=== PATIENT | female | born 1935 | race Caucasian/White ===

== ENCOUNTER 2018-01-06 19:28 | Inpatient (IN) | payer MEDICARE, OTHER ==
[~2018-01-06] VITALS: Ht 166.4 cm; Wt 60.3 kg
[2018-01-06 22:55] VITALS: BP 133/73
[2018-01-07] VITALS: BP 120/69
[2018-01-07] MEDS ORDERED: FUROSEMIDE20 M1 ORAL (00:21)
[2018-01-07] MEDS ORDERED: TRIAMCINOLONE AC5 GM DT (00:21)
[2018-01-07] MEDS ORDERED: VALACYCLOVIR500 MG ORAL (00:21)
[2018-01-07] MEDS ORDERED: SYNTHROID100 MCG ORAL (00:21)
[2018-01-07] MEDS ORDERED: OMEPRAZOLE20 M2 ORAL (00:21)
[2018-01-07] MEDS ORDERED: NORCO 5-325 TA1 EACH ORAL (00:21)
[2018-01-07] MEDS ORDERED: Zolpidem 5mg tab ORAL PRN (01:15)
[2018-01-07] MEDS ORDERED: Metoprolol 5mg/5ml Inj IVP PRN (01:15)
[2018-01-07] MEDS ORDERED: Norco 5mg/325mg tab ORAL PRN (01:30)
[2018-01-07] MEDS ORDERED: Xarelto 10mg tab ORAL SCH (02:00)
[2018-01-07] MEDS: Xarelto 15mg tab ORAL SCH ×2 (02:20→16:26)
[2018-01-07 04:00] VITALS: BP 120/65
[2018-01-07 07:52] VITALS: BP 121/73
[2018-01-07] MEDS: valACYclovir HCL 500mg tab ORAL SCH (08:20)
[2018-01-07] MEDS: Metoprolol Tartrate 50mg tab ORAL SCH ×2 (08:21→20:24)
[2018-01-07 08:22] LABS: BASOPHILS % (AUTO) 0.9 % (0.0-2.0); EOSINOPHILS % (AUTO) 0.3 % (0.0-3.0); HEMATOCRIT 42.9 % (37.0-47.0); HEMOGLOBIN 14.6 G/DL (12.0-16.0); LYMPHOCYTES % (AUTO) 21.8 % (20.0-45.0); MEAN CORPUSCULAR VOLUME 93 FL (80-99); MONOCYTES % (AUTO) 12.2 % (1.0-10.0); NEUTROPHILS % (AUTO) 64.9 % (45.0-75.0); PLATELET COUNT 236 K/UL (150-450); RED BLOOD COUNT 4.62 M/UL (4.20-5.40)
[2018-01-07 08:58] LABS: ALANINE AMINOTRANSFERASE 24 U/L (12-78); ALBUMIN 3.2 G/DL (3.4-5.0); ALKALINE PHOSPHATASE 63 U/L (46-116); ANION GAP 9 mmol/L (5-15); ASPARTATE AMINO TRANSFERASE 22 U/L (15-37); BILIRUBIN,TOTAL 0.6 MG/DL (0.2-1.0); BLOOD UREA NITROGEN 25 mg/dL (7-18); CALCIUM 8.4 MG/DL (8.5-10.1); CARBON DIOXIDE 26 MMOL/L (21-32); CHLORIDE 105 MMOL/L (98-107); CHOLESTEROL 187 MG/DL (< 200); HDL CHOLESTEROL 82 MG/DL (40-60); PHOSPHORUS 2.9 MG/DL (2.5-4.9); POTASSIUM 4.1 MMOL/L (3.5-5.1); SODIUM 140 MMOL/L (136-145); TRIGLYCERIDES 42 MG/DL (30-150)
[2018-01-07] MEDS ORDERED: Metoprolol Succinate XL 50mg tab ORAL SCH (09:00)
--- NOTE | 2018-01-07 11:50 | Consultation ---
History of Present Illness General Date patient seen: Jan 07, 2018 Present Illness HPI 82 year old female without PMHx was taken to [facility] by paramedics with CC of near-syncope. She was rapid afib. She got lightheaded but didn't loose consciousness. She received IV Cardizem and Metoprolol and heart rate came down. She is transferred to [facility] telemetry for further work up. Allergies: Coded Allergies: SULFA (SULFONAMIDE ANTIBIOTICS) (Verified Allergy, Unknown, 01/07/18) Medication History Scheduled Furosemide* (Lasix*), 20 MG ORAL DAILY, (Reported) Levothyroxine Sodium* (Synthroid*), 100 MCG ORAL DAILY, (Reported) Omeprazole (Omeprazole), 20 MG ORAL DAILY, (Reported) Valacyclovir Hcl* (Valtrex*), 500 MG ORAL EVERY OTHER DAY, (Reported) Scheduled PRN Hydrocodone Bit/Acetaminophen 5-325* (Lumpkin 5-325*), 1 TAB ORAL Q6H PRN for For Pain, (Reported) Miscellaneous Medications Triamcinolone Acetonide (Triamcinolone Acetonide), 5 GM DT, (Reported) Patient History Healthcare decision maker NEERU PUENTE Resuscitation status Full Code Advanced Directive on File No Past Medical/Surgical History Past Medical/Surgical History: (1) Hypothyroidism Review of Systems Constitutional: Reports: no symptoms, weakness Eye: Reports: no symptoms All Other Systems: negative except mentioned in HPI Physical Exam General Appearance: WD/WN, no apparent distress Lines, tubes and drains: peripheral HEENT: normocephalic, atraumatic Neck: non-tender Respiratory/Chest: chest wall non-tender Breasts: no masses Cardiovascular/Chest: irregularly irregular Abdomen: normal bowel sounds, non tender Genitourinary/Rectal: normal genital exam Extremities: normal range of motion Skin Exam: normal pigmentation Last 24 Hour Vital Signs Date Time Temp Pulse Resp B/P (MAP) Pulse Ox O2 Delivery O2 Flow Rate FiO2 01/07/18 09:00 Room Air 01/07/18 08:21 96 121/73 01/07/18 08:00 91 01/07/18 07:52 97.7 96 20 121/73 (89) 97 01/07/18 04:00 97.0 96 20 120/65 (83) 97 01/07/18 04:00 96 01/07/18 00:00 90 01/07/18 00:00 97.0 90 20 120/69 (86) 96 01/06/18 23:42 Room Air 01/06/18 23:30 90 01/06/18 22:55 97.2 92 20 133/73 (93) 95 Intake and Output 01/06/18 01/07/18 19:00 07:00 Output Total 0 ml Balance 0 ml Output Urine Total 0 ml Laboratory Tests Test 01/07/18 07:30 White Blood Count 7.0 K/UL (4.8-10.8) Red Blood Count 4.62 M/UL (4.20-5.40) Hemoglobin 14.6 G/DL (12.0-16.0) Hematocrit 42.9 % (37.0-47.0) Mean Corpuscular Volume 93 FL (80-99) Mean Corpuscular Hemoglobin 31.6 PG (27.0-31.0) H Mean Corpuscular Hemoglobin Concent 34.1 G/DL (32.0-36.0) Red Cell Distribution Width 12.0 % (11.6-14.8) Platelet Count 236 K/UL (150-450) Mean Platelet Volume 7.1 FL (6.5-10.1) Neutrophils (%) (Auto) 64.9 % (45.0-75.0) Lymphocytes (%) (Auto) 21.8 % (20.0-45.0) Monocytes (%) (Auto) 12.2 % (1.0-10.0) H Eosinophils (%) (Auto) 0.3 % (0.0-3.0) Basophils (%) (Auto) 0.9 % (0.0-2.0) Sodium Level 140 MMOL/L (136-145) Potassium Level 4.1 MMOL/L (3.5-5.1) Chloride Level 105 MMOL/L (98-107) Carbon Dioxide Level 26 MMOL/L (21-32) Anion Gap 9 mmol/L (5-15) Blood Urea Nitrogen 25 mg/dL (7-18) H Creatinine 1.0 MG/DL (0.55-1.30) Estimat Glomerular Filtration Rate mL/min (>60) Glucose Level 99 MG/DL (74-106) Calcium Level 8.4 MG/DL (8.5-10.1) L Phosphorus Level 2.9 MG/DL (2.5-4.9) Magnesium Level 1.8 MG/DL (1.8-2.4) Total Bilirubin 0.6 MG/DL (0.2-1.0) Aspartate Amino Transf (AST/SGOT) 22 U/L (15-37) Alanine Aminotransferase (ALT/SGPT) 24 U/L (12-78) Alkaline Phosphatase 63 U/L (46-116) Total Protein 6.3 G/DL (6.4-8.2) L Albumin 3.2 G/DL (3.4-5.0) L Globulin 3.1 g/dL Albumin/Globulin Ratio 1.0 (1.0-2.7) Triglycerides Level 42 MG/DL (30-150) Cholesterol Level 187 MG/DL (< 200) LDL Cholesterol 93 mg/dL (<100) HDL Cholesterol 82 MG/DL (40-60) H Cholesterol/HDL Ratio 2.3 (3.3-4.4) L Thyroid Stimulating Hormone (TSH) 0.044 uiU/mL (0.358-3.740) Height (Feet): 5 Height (Inches): 5.50 Weight (Pounds): 133 Medications Current Medications Medications (Trade) Dose Ordered Sig/Nazario Route PRN Reason Start Time Stop Time Status Last Admin Dose Admin Acetaminophen (Tylenol) 650 mg Q6H PRN ORAL Mild Pain/Temp > 100.5 01/07/18 01:15 02/06/18 01:14 Acetaminophen/ Hydrocodone Bitart (Lumpkin 5/325) 1 tab Q6H PRN ORAL For Pain 01/07/18 01:30 01/14/18 01:29 Furosemide (Lasix) 20 mg DAILY ORAL 01/07/18 09:00 02/06/18 08:59 01/07/18 08:21 Levothyroxine Sodium (Synthroid) 100 mcg DAILY@0630 ORAL 01/07/18 06:30 02/06/18 06:29 01/07/18 06:16 Metoprolol Tartrate (Lopressor) 5 mg Q4H PRN IVP Per rx protocol 01/07/18 01:15 02/06/18 01:14 Metoprolol Tartrate (Lopressor) 50 mg Q12HR ORAL 01/07/18 09:00 02/06/18 08:59 01/07/18 08:21 Ondansetron HCl (Zofran) 4 mg Q4H PRN IVP Nausea & Vomiting 01/07/18 01:15 02/06/18 01:14 Pantoprazole (Protonix) 40 mg DAILY ORAL 01/07/18 09:00 02/06/18 08:59 01/07/18 08:21 Potassium Chloride (K-Dur) 20 meq DAILY ORAL 01/07/18 09:00 02/06/18 08:59 01/07/18 08:20 Rivaroxaban (Xarelto) 15 mg DAILY@1630 ORAL 01/07/18 02:00 02/06/18 01:59 01/07/18 02:20 Valacyclovir HCl (Valtrex) 500 mg EVERY OTHER DAY ORAL 01/07/18 09:00 02/06/18 08:59 01/07/18 08:20 Zolpidem Tartrate (Ambien) 5 mg HSPRN PRN ORAL Insomnia 01/07/18 01:15 01/14/18 01:14 Assessment/Plan Problem List: (1) New onset a-fib ICD Codes: I48.91 - Unspecified atrial fibrillation SNOMED: 24264686 (2) Near syncope ICD Codes: R55 - Syncope and collapse SNOMED: 124720804 (3) Hypothyroidism ICD Codes: E03.9 - Hypothyroidism, unspecified SNOMED: 49953933 Assessment/Plan rate control, prn Cardizem and metoprolol check echo check BNP check cxr f/u bun/creatinine cardiology evaluation Gonzales Bright MD Jan 07, 2018 11:50
[2018-01-07 12:00] VITALS: BP 113/59
--- NOTE | 2018-01-07 12:01 | Consultation ---
History of Present Illness Present Illness HPI 82-year-old lady with history of hypertension, hypothyroidism, depression and hip replacement. the pt pw depressed mood, anxiety, fatigue. the pts daughter past away 2 yrs ago in January. the pt denies si/hi. the pt wants to be discharged home Allergies: Coded Allergies: SULFA (SULFONAMIDE ANTIBIOTICS) (Verified Allergy, Unknown, 01/07/18) Medication History Scheduled Furosemide* (Lasix*), 20 MG ORAL DAILY, (Reported) Levothyroxine Sodium* (Synthroid*), 100 MCG ORAL DAILY, (Reported) Omeprazole (Omeprazole), 20 MG ORAL DAILY, (Reported) Valacyclovir Hcl* (Valtrex*), 500 MG ORAL EVERY OTHER DAY, (Reported) Scheduled PRN Hydrocodone Bit/Acetaminophen 5-325* (Glenc[place] 5-325*), 1 TAB ORAL Q6H PRN for For Pain, (Reported) Miscellaneous Medications Triamcinolone Acetonide (Triamcinolone Acetonide), 5 GM DT, (Reported) Patient History History Provided By: Patient, Medical Record, PMD Healthcare decision maker NEERU PUENTE Resuscitation status Full Code Advanced Directive on File No Past Medical/Surgical History Past Medical/Surgical History: (1) No significant past medical history (2) New onset a-fib (3) Near syncope (4) Hypothyroidism Review of Systems Psychiatric: Reports: prior hx, anxiety, depressed feelings, emotional problems Physical Exam General Appearance: no apparent distress, alert Neurologic: oriented x 3, responsive, depressed affect Last 24 Hour Vital Signs Date Time Temp Pulse Resp B/P (MAP) Pulse Ox O2 Delivery O2 Flow Rate FiO2 01/07/18 09:00 Room Air 01/07/18 08:21 96 121/73 01/07/18 08:00 91 01/07/18 07:52 97.7 96 20 121/73 (89) 97 01/07/18 04:00 97.0 96 20 120/65 (83) 97 01/07/18 04:00 96 01/07/18 00:00 90 01/07/18 00:00 97.0 90 20 120/69 (86) 96 01/06/18 23:42 Room Air 01/06/18 23:30 90 01/06/18 22:55 97.2 92 20 133/73 (93) 95 Intake and Output 01/06/18 01/07/18 19:00 07:00 Output Total 0 ml Balance 0 ml Output Urine Total 0 ml Laboratory Tests Test 01/07/18 07:30 White Blood Count 7.0 K/UL (4.8-10.8) Red Blood Count 4.62 M/UL (4.20-5.40) Hemoglobin 14.6 G/DL (12.0-16.0) Hematocrit 42.9 % (37.0-47.0) Mean Corpuscular Volume 93 FL (80-99) Mean Corpuscular Hemoglobin 31.6 PG (27.0-31.0) H Mean Corpuscular Hemoglobin Concent 34.1 G/DL (32.0-36.0) Red Cell Distribution Width 12.0 % (11.6-14.8) Platelet Count 236 K/UL (150-450) Mean Platelet Volume 7.1 FL (6.5-10.1) Neutrophils (%) (Auto) 64.9 % (45.0-75.0) Lymphocytes (%) (Auto) 21.8 % (20.0-45.0) Monocytes (%) (Auto) 12.2 % (1.0-10.0) H Eosinophils (%) (Auto) 0.3 % (0.0-3.0) Basophils (%) (Auto) 0.9 % (0.0-2.0) Sodium Level 140 MMOL/L (136-145) Potassium Level 4.1 MMOL/L (3.5-5.1) Chloride Level 105 MMOL/L (98-107) Carbon Dioxide Level 26 MMOL/L (21-32) Anion Gap 9 mmol/L (5-15) Blood Urea Nitrogen 25 mg/dL (7-18) H Creatinine 1.0 MG/DL (0.55-1.30) Estimat Glomerular Filtration Rate mL/min (>60) Glucose Level 99 MG/DL (74-106) Calcium Level 8.4 MG/DL (8.5-10.1) L Phosphorus Level 2.9 MG/DL (2.5-4.9) Magnesium Level 1.8 MG/DL (1.8-2.4) Total Bilirubin 0.6 MG/DL (0.2-1.0) Aspartate Amino Transf (AST/SGOT) 22 U/L (15-37) Alanine Aminotransferase (ALT/SGPT) 24 U/L (12-78) Alkaline Phosphatase 63 U/L (46-116) Total Protein 6.3 G/DL (6.4-8.2) L Albumin 3.2 G/DL (3.4-5.0) L Globulin 3.1 g/dL Albumin/Globulin Ratio 1.0 (1.0-2.7) Triglycerides Level 42 MG/DL (30-150) Cholesterol Level 187 MG/DL (< 200) LDL Cholesterol 93 mg/dL (<100) HDL Cholesterol 82 MG/DL (40-60) H Cholesterol/HDL Ratio 2.3 (3.3-4.4) L Thyroid Stimulating Hormone (TSH) 0.044 uiU/mL (0.358-3.740) Height (Feet): 5 Height (Inches): 5.50 Weight (Pounds): 133 Medications Current Medications Medications (Trade) Dose Ordered Sig/Nazario Route PRN Reason Start Time Stop Time Status Last Admin Dose Admin Acetaminophen (Tylenol) 650 mg Q6H PRN ORAL Mild Pain/Temp > 100.5 01/07/18 01:15 02/06/18 01:14 Acetaminophen/ Hydrocodone Bitart (Glencross 5/325) 1 tab Q6H PRN ORAL For Pain 01/07/18 01:30 01/14/18 01:29 Furosemide (Lasix) 20 mg DAILY ORAL 01/07/18 09:00 02/06/18 08:59 01/07/18 08:21 Levothyroxine Sodium (Synthroid) 100 mcg DAILY@0630 ORAL 01/07/18 06:30 02/06/18 06:29 01/07/18 06:16 Metoprolol Tartrate (Lopressor) 5 mg Q4H PRN IVP Per rx protocol 01/07/18 01:15 02/06/18 01:14 Metoprolol Tartrate (Lopressor) 50 mg Q12HR ORAL 01/07/18 09:00 02/06/18 08:59 01/07/18 08:21 Ondansetron HCl (Zofran) 4 mg Q4H PRN IVP Nausea & Vomiting 01/07/18 01:15 02/06/18 01:14 Pantoprazole (Protonix) 40 mg DAILY ORAL 01/07/18 09:00 02/06/18 08:59 01/07/18 08:21 Potassium Chloride (K-Dur) 20 meq DAILY ORAL 01/07/18 09:00 02/06/18 08:59 01/07/18 08:20 Rivaroxaban (Xarelto) 15 mg DAILY@1630 ORAL 01/07/18 02:00 02/06/18 01:59 01/07/18 02:20 Valacyclovir HCl (Valtrex) 500 mg EVERY OTHER DAY ORAL 01/07/18 09:00 02/06/18 08:59 01/07/18 08:20 Zolpidem Tartrate (Ambien) 5 mg HSPRN PRN ORAL Insomnia 01/07/18 01:15 01/14/18 01:14 Assessment/Plan Problem List: (1) Major depression ICD Codes: F32.9 - Major depressive disorder, single episode, unspecified SNOMED: 901921355 (2) Anxiety ICD Codes: F41.9 - Anxiety disorder, unspecified SNOMED: 33095010 Status: stable, progressing Assessment/Plan ativan prn provided ro/Seth Gonzalez MD Jan 07, 2018 12:01
--- NOTE | 2018-01-07 12:16 | Diagnostic Imaging Report ---
Indication: Dyspnea Comparison: None A single view chest radiograph was obtained. Findings: No definite infiltrate or pulmonary vascular congestion identified. There is biapical pleural calcification the nature of which is not known but likely postinflammatory. Surgical clips noted in the left axilla. The heart is enlarged. The aorta is mildly enlarged consistent with atherosclerotic vascular disease. The bones are osteopenic. Impression: No acute disease Biapical pleural calcification likely postinflammatory.
[2018-01-07 16:00] VITALS: BP 139/89
--- NOTE | 2018-01-07 16:04 | Cardiac Electrophysiology PN ---
Subjective Subjective [id number] Objective Last 24 Hour Vital Signs Date Time Temp Pulse Resp B/P (MAP) Pulse Ox O2 Delivery O2 Flow Rate FiO2 01/07/18 12:00 97.8 76 21 113/59 (77) 96 01/07/18 09:00 Room Air 01/07/18 08:21 96 121/73 01/07/18 08:00 91 01/07/18 07:52 97.7 96 20 121/73 (89) 97 01/07/18 04:00 97.0 96 20 120/65 (83) 97 01/07/18 04:00 96 01/07/18 00:00 90 01/07/18 00:00 97.0 90 20 120/69 (86) 96 01/06/18 23:42 Room Air 01/06/18 23:30 90 01/06/18 22:55 97.2 92 20 133/73 (93) 95 Intake and Output 01/06/18 01/07/18 19:00 07:00 Output Total 0 ml Balance 0 ml Output Urine Total 0 ml Laboratory Tests Test 01/07/18 07:30 White Blood Count 7.0 K/UL (4.8-10.8) Red Blood Count 4.62 M/UL (4.20-5.40) Hemoglobin 14.6 G/DL (12.0-16.0) Hematocrit 42.9 % (37.0-47.0) Mean Corpuscular Volume 93 FL (80-99) Mean Corpuscular Hemoglobin 31.6 PG (27.0-31.0) H Mean Corpuscular Hemoglobin Concent 34.1 G/DL (32.0-36.0) Red Cell Distribution Width 12.0 % (11.6-14.8) Platelet Count 236 K/UL (150-450) Mean Platelet Volume 7.1 FL (6.5-10.1) Neutrophils (%) (Auto) 64.9 % (45.0-75.0) Lymphocytes (%) (Auto) 21.8 % (20.0-45.0) Monocytes (%) (Auto) 12.2 % (1.0-10.0) H Eosinophils (%) (Auto) 0.3 % (0.0-3.0) Basophils (%) (Auto) 0.9 % (0.0-2.0) Sodium Level 140 MMOL/L (136-145) Potassium Level 4.1 MMOL/L (3.5-5.1) Chloride Level 105 MMOL/L (98-107) Carbon Dioxide Level 26 MMOL/L (21-32) Anion Gap 9 mmol/L (5-15) Blood Urea Nitrogen 25 mg/dL (7-18) H Creatinine 1.0 MG/DL (0.55-1.30) Estimat Glomerular Filtration Rate mL/min (>60) Glucose Level 99 MG/DL (74-106) Calcium Level 8.4 MG/DL (8.5-10.1) L Phosphorus Level 2.9 MG/DL (2.5-4.9) Magnesium Level 1.8 MG/DL (1.8-2.4) Total Bilirubin 0.6 MG/DL (0.2-1.0) Aspartate Amino Transf (AST/SGOT) 22 U/L (15-37) Alanine Aminotransferase (ALT/SGPT) 24 U/L (12-78) Alkaline Phosphatase 63 U/L (46-116) Total Protein 6.3 G/DL (6.4-8.2) L Albumin 3.2 G/DL (3.4-5.0) L Globulin 3.1 g/dL Albumin/Globulin Ratio 1.0 (1.0-2.7) Triglycerides Level 42 MG/DL (30-150) Cholesterol Level 187 MG/DL (< 200) LDL Cholesterol 93 mg/dL (<100) HDL Cholesterol 82 MG/DL (40-60) H Cholesterol/HDL Ratio 2.3 (3.3-4.4) L Thyroid Stimulating Hormone (TSH) 0.044 uiU/mL (0.358-3.740) Free Thyroxine 1.67 NG/DL (0.76-1.46) H Free Triiodothyronine 4.6 pg/mL (2.3-4.2) H Berry Morales MD Jan 07, 2018 16:04
--- NOTE | 2018-01-07 17:09 | History & Physical ---
History and Physical History & Physicial Dictated for Int Med - Dr Lama no. [id number]. João Aguilar MD Jan 07, 2018 17:09
[2018-01-07 19:50] VITALS: BP 127/65
--- NOTE | 2018-01-07 20:30 | Consultation ---
DATE OF CONSULTATION: 01/07/2018 CARDIOLOGY CONSULTATION CONSULTING PHYSICIAN: Berry Morales M.D. REFERRING PHYSICIAN: Ruel Lama M.D. REASON FOR CONSULTATION: Near syncope and atrial fibrillation with rapid ventricular response. HISTORY OF PRESENT ILLNESS: The patient is a 82-year-old lady with history of hypertension, hypothyroidism with no other major past medical history except for hip replacement who presented to [facility] by paramedics complaining of near syncope. The patient was found to be in atrial fibrillation with rapid ventricular response. The patient got lightheaded but did not lose consciousness. The patient received IV Cardizem and metoprolol and heart rate improved. The patient was then transferred to [facility] for further evaluation and management. REVIEW OF SYSTEMS: Negative other than what was mentioned in the history of present illness. PAST MEDICAL HISTORY: As mentioned above. MEDICATIONS: Include Lasix, Synthroid, omeprazole, and Valtrex. SOCIAL HISTORY: She lives at home. Does not smoke or drink alcohol. FAMILY HISTORY: Noncontributory. PHYSICAL EXAMINATION: VITAL SIGNS: Blood pressure of 113/59, pulse 76, respirations 20, and temperature 97.8. HEENT: Head and neck shows no JVD. LUNGS: Clear. CARDIOVASCULAR: Shows regular S1 and S2 with no gallop or murmur. ABDOMEN: Soft. EXTREMITIES: No pitting edema. LABORATORY AND DIAGNOSTIC DATA: EKG shows atrial fibrillation at rate of 96 with complete left bundle-branch block. Labs show white count of 7, hemoglobin 14.4, hematocrit 42.9, and platelet count 239. Sodium 140, potassium 4.1, BUN of 25, creatinine 1, and glucose of 99. TSH is 0.04, free T4 is 1.6 and 4.67. ASSESSMENT AND PLAN: 1. Atrial fibrillation. The patient is mildly hyperthyroid. T4 and T3 is elevated and TSH is low. Hold off on Synthroid at this point. After further evaluation is completed, continue metoprolol 50 mg b.i.d. Add to her medical regimen as well. 2. Complete left bundle-branch block and presyncope. Watch the patient for intermittent complete heart block. We will get an echocardiogram and carotid duplex for further evaluation. 3. History of hypothyroidism, currently hyperthyroid. Discontinue Synthroid for now. Thank you very much, Dr. Lama, for allowing me to participate in the care of this patient. Please do not hesitate to contact me for any questions regarding my evaluation. Sincerely, Berry Morales M.D. DR: Annel JOB#: [id number] CC:
--- NOTE | 2018-01-07 21:00 | History and Physical Report ---
DATE OF ADMISSION: 01/06/2018 CHIEF COMPLAINT: The patient is an 82-year-old white female, who presents with chief complaint of "I passed out." HISTORY OF PRESENT ILLNESS: This began yesterday, January 06, 2018. The patient was at the grocery store. The patient was there with a friend. The patient was paying at the register. The patient states she became warm and "dizzy." The patient then fell backward. The patient does not remember what happened for a couple of seconds. The patient then awoke to hear her friend calling 911. The patient presented initially to [facility]. The patient was found to be in atrial fibrillation with rapid ventricular rate. The patient has been transferred to [facility] for insurance purposes. The patient is admitted with atrial fibrillation with rapid ventricular rate. REVIEW OF SYSTEMS: CONSTITUTIONAL: The patient denies weight loss or weight gain. The patient denies fevers or chills. HEENT: The patient is denies ear or throat pain. The patient denies headache. CARDIOVASCULAR: The patient denies palpitations or chest pain. CHEST: The patient denies wheeze or shortness of breath. ABDOMINAL: The patient denies nausea, vomiting, diarrhea, or constipation. GENITOURINARY: The patient denies dysuria or increased frequency of urination. NEUROMUSCULAR: The patient complains of syncopal episode as above. The patient denies seizures or generalized weakness. PAST MEDICAL HISTORY: Significant for: 1. Hypercholesterolemia. 2. Hypothyroidism. 3. Sourav-Cummings virus. PAST SURGICAL HISTORY: Significant for: 1. Thyroidectomy. 2. Left breast lumpectomy. 3. Right hip replacement. CURRENT MEDICATIONS: 1. Levothyroxine 100 mcg p.o. daily. 2. Omeprazole 20 mg p.o. daily. 3. Lipitor 10 mg p.o. daily. 4. Valtrex 500 mg p.o. every other day. ALLERGIES: Sulfa. SOCIAL HISTORY: The patient is a and lives alone. The patient denies tobacco or alcohol use. PHYSICAL EXAMINATION: VITAL SIGNS: Temperature 97.7, respirations 20, pulse 96-153, respirations 20, blood pressure 129/73. GENERAL: The patient is a well-developed, well-nourished white female, in no apparent distress. HEENT: Eyes, pupils equal and responsive to light and accommodation. Extraocular movements are intact. NECK: Supple without lymphadenopathy. CHEST: Lungs are clear to auscultation bilaterally without wheezes or rales. CARDIOVASCULAR: Irregular rhythm, irregular rate, tachycardia. S1, S2 are normal without murmurs, rubs, or gallops. ABDOMEN: Soft, nontender, nondistended. Positive bowel sounds. No evidence of hepatosplenomegaly. Currently, no rebound or guarding noted. EXTREMITIES: Negative for clubbing, cyanosis, or edema. RECTAL: Refused. GENITAL: Refused. NEUROLOGIC: Cranial nerves II through XII are grossly intact without focal deficits. Motor strength is 5/5 bilaterally intact. Deep tendon reflexes are 2+, plantar. LABORATORY STUDIES: From [place], WBC 7.4, hemoglobin 14.3, hematocrit 41.8, platelets 237,000. Sodium 139, potassium 3.9, chloride 104, CO2 25, BUN 32, creatinine 1.53. Troponin less than 0.02. BNP 140. EKG demonstrated atrial fibrillation with ventricular rate of approximately 130 beats per minute. There were no acute ST or T-waves noted. ASSESSMENT: This is an 82-year-old white female with: 1. Syncopal episode. 2. Atrial fibrillation with rapid ventricular rate. 3. Hypercholesterolemia. 4. Hypothyroidism. 5. Sourav-Cummings virus. TREATMENT: 1. Near syncope/atrial fibrillation with rapid ventricular rate. The patient had a CT scan performed at [place] which was essentially within normal limits. There was an area of hypodensity in the right frontal lobe which was questionable for indeterminate infarct. 2. A Cardiology consultation has been obtained with Dr. Berry Morales. The patient has been started empirically on metoprolol. The patient may require cardioversion during this hospitalization. 3. Hypercholesterolemia. Continue Lipitor as above. 4. Hypothyroidism. TSH is pending. Continue Levoxyl as above. 5. Sourav-Cummings virus. Continue Valtrex as above. João Aguilar M.D. DR: Bea JOB#: [id number] CC:
[2018-01-08] VITALS: BP 118/72
[2018-01-08 04:00] VITALS: BP 123/72
[2018-01-08 08:00] VITALS: BP 135/80
[2018-01-08 08:34] LABS: BASOPHILS % (AUTO) 0.9 % (0.0-2.0); EOSINOPHILS % (AUTO) 1.1 % (0.0-3.0); HEMATOCRIT 42.7 % (37.0-47.0); HEMOGLOBIN 14.8 G/DL (12.0-16.0); LYMPHOCYTES % (AUTO) 27.5 % (20.0-45.0); MEAN CORPUSCULAR VOLUME 93 FL (80-99); MONOCYTES % (AUTO) 9.3 % (1.0-10.0); NEUTROPHILS % (AUTO) 61.2 % (45.0-75.0); PLATELET COUNT 226 K/UL (150-450); RED BLOOD COUNT 4.59 M/UL (4.20-5.40); RED CELL DISTRIBUTION WIDTH 12.2 % (11.6-14.8); WHITE BLOOD COUNT 5.6 K/UL (4.8-10.8)
[2018-01-08] MEDS: Metoprolol Tartrate 50mg tab ORAL SCH ×2 (08:57→21:44)
[2018-01-08 09:09] LABS: ANION GAP 10 mmol/L (5-15); BLOOD UREA NITROGEN 25 mg/dL (7-18); CALCIUM 8.5 MG/DL (8.5-10.1); CARBON DIOXIDE 26 MMOL/L (21-32); CHLORIDE 103 MMOL/L (98-107); CREATININE 1.3 MG/DL (0.55-1.30); POTASSIUM 4.1 MMOL/L (3.5-5.1); SODIUM 139 MMOL/L (136-145)
[2018-01-08 11:16] VITALS: BP 123/85
--- NOTE | 2018-01-08 11:44 | Cardiac Electrophysiology PN ---
Assessment/Plan Assessment/Plan 1. Atrial fibrillation. The patient is mildly hyperthyroid. T4 and T3 is elevated and TSH is low. Hold off on Synthroid at this point. Continue metoprolol 50 mg b.i.d. and Xarelto 15 daily 2. Complete left bundle-branch block and presyncope. Watch the patient for intermittent complete heart block. EF 55%. Carotid duplex pending. Zio patch as out patient 3. History of hypothyroidism, currently hyperthyroid. Discontinue Synthroid for now. DW Dr Bright Subjective Subjective Remained in Atrial fib rate 72. No CP or SOB Objective Last 24 Hour Vital Signs Date Time Temp Pulse Resp B/P (MAP) Pulse Ox O2 Delivery O2 Flow Rate FiO2 01/08/18 11:16 98.0 93 18 123/85 (98) 99 01/08/18 09:00 Room Air 01/08/18 08:57 100 135/80 01/08/18 08:00 94 01/08/18 08:00 98.1 100 18 135/80 (98) 99 01/08/18 04:00 98.2 80 21 123/72 (89) 99 01/08/18 04:00 74 01/08/18 00:00 98.2 108 20 118/72 (87) 96 01/08/18 00:00 94 01/07/18 21:00 Room Air 01/07/18 20:24 98 127/65 01/07/18 20:00 113 01/07/18 19:50 98.1 98 20 127/65 (85) 98 01/07/18 16:00 97.5 97 20 139/89 (106) 96 01/07/18 16:00 112 01/07/18 12:00 83 01/07/18 12:00 97.8 76 21 113/59 (77) 96 Intake and Output 01/07/18 01/08/18 18:59 06:59 Intake Total 1200 ml Output Total 300 ml Balance 900 ml Intake Oral 1200 ml Output Urine Total 300 ml # Voids 3 5 # Bowel Movements 2 Laboratory Tests Test 01/08/18 07:35 White Blood Count 5.6 K/UL (4.8-10.8) Red Blood Count 4.59 M/UL (4.20-5.40) Hemoglobin 14.8 G/DL (12.0-16.0) Hematocrit 42.7 % (37.0-47.0) Mean Corpuscular Volume 93 FL (80-99) Mean Corpuscular Hemoglobin 32.3 PG (27.0-31.0) H Mean Corpuscular Hemoglobin Concent 34.7 G/DL (32.0-36.0) Red Cell Distribution Width 12.2 % (11.6-14.8) Platelet Count 226 K/UL (150-450) Mean Platelet Volume 6.4 FL (6.5-10.1) L Neutrophils (%) (Auto) 61.2 % (45.0-75.0) Lymphocytes (%) (Auto) 27.5 % (20.0-45.0) Monocytes (%) (Auto) 9.3 % (1.0-10.0) Eosinophils (%) (Auto) 1.1 % (0.0-3.0) Basophils (%) (Auto) 0.9 % (0.0-2.0) Sodium Level 139 MMOL/L (136-145) Potassium Level 4.1 MMOL/L (3.5-5.1) Chloride Level 103 MMOL/L (98-107) Carbon Dioxide Level 26 MMOL/L (21-32) Anion Gap 10 mmol/L (5-15) Blood Urea Nitrogen 25 mg/dL (7-18) H Creatinine 1.3 MG/DL (0.55-1.30) Estimat Glomerular Filtration Rate mL/min (>60) Glucose Level 188 MG/DL (74-106) H Calcium Level 8.5 MG/DL (8.5-10.1) Troponin I 0.001 ng/mL (0.000-0.056) Pro-B-Type Natriuretic Peptide 3562 pg/mL (0-125) H Thyroid Stimulating Hormone (TSH) 0.063 uiU/mL (0.358-3.740) Free Thyroxine 1.40 NG/DL (0.76-1.46) Objective HEENT: Head and neck shows no JVD. LUNGS: Clear. CARDIOVASCULAR: Shows regular S1 and S2 with no gallop or murmur. ABDOMEN: Soft. EXTREMITIES: No pitting edema. Berry Morales MD Jan 08, 2018 11:44
--- NOTE | 2018-01-08 12:49 | Pulmonology Progress Note ---
Assessment/Plan Problems: (1) New onset a-fib (2) Near syncope (3) Hypothyroidism Assessment/Plan heart rate controlled decrease the dose of Synthroid echo reviewed. Subjective ROS Limited/Unobtainable: No Constitutional: Reports: no symptoms HEENT: Repors: no symptoms Respiratory: Reports: no symptoms Allergies: Coded Allergies: SULFA (SULFONAMIDE ANTIBIOTICS) (Verified Allergy, Unknown, 01/07/18) Objective Last 24 Hour Vital Signs Date Time Temp Pulse Resp B/P (MAP) Pulse Ox O2 Delivery O2 Flow Rate FiO2 01/08/18 11:16 98.0 93 18 123/85 (98) 99 01/08/18 09:00 Room Air 01/08/18 08:57 100 135/80 01/08/18 08:00 94 01/08/18 08:00 98.1 100 18 135/80 (98) 99 01/08/18 04:00 98.2 80 21 123/72 (89) 99 01/08/18 04:00 74 01/08/18 00:00 98.2 108 20 118/72 (87) 96 01/08/18 00:00 94 01/07/18 21:00 Room Air 01/07/18 20:24 98 127/65 01/07/18 20:00 113 01/07/18 19:50 98.1 98 20 127/65 (85) 98 01/07/18 16:00 97.5 97 20 139/89 (106) 96 01/07/18 16:00 112 Intake and Output 01/07/18 01/08/18 18:59 06:59 Intake Total 1200 ml Output Total 300 ml Balance 900 ml Intake Oral 1200 ml Output Urine Total 300 ml # Voids 3 5 # Bowel Movements 2 General Appearance: WD/WN HEENT: normocephalic, atraumatic Respiratory/Chest: lungs clear Breasts: no masses Cardiovascular: normal peripheral pulses Abdomen: normal bowel sounds, soft, non tender Extremities: no cyanosis Skin: no lesions 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 Laboratory Tests 01/08/18 07:35: White Blood Count 5.6, Red Blood Count 4.59, Hemoglobin 14.8, Hematocrit 42.7, Mean Corpuscular Volume 93, Mean Corpuscular Hemoglobin 32.3H, Mean Corpuscular Hemoglobin Concent 34.7, Red Cell Distribution Width 12.2, Platelet Count 226, Mean Platelet Volume 6.4L, Neutrophils (%) (Auto) 61.2, Lymphocytes (%) (Auto) 27.5, Monocytes (%) (Auto) 9.3, Eosinophils (%) (Auto) 1.1, Basophils (%) (Auto ) 0.9, Sodium Level 139, Potassium Level 4.1, Chloride Level 103, Carbon Dioxide Level 26, Anion Gap 10, Blood Urea Nitrogen 25H, Creatinine 1.3, Estimat Glomerular Filtration Rate , Glucose Level 188H, Calcium Level 8.5, Troponin I 0.001, Pro-B-Type Natriuretic Peptide 3562H, Thyroid Stimulating Hormone (TSH) 0.063L, Free Thyroxine 1.40 Current Medications Medications (Trade) Dose Ordered Sig/Nazario Route PRN Reason Start Time Stop Time Status Last Admin Dose Admin Acetaminophen (Tylenol) 650 mg Q6H PRN ORAL Mild Pain/Temp > 100.5 01/07/18 01:15 02/06/18 01:14 Acetaminophen/ Hydrocodone Bitart ([place] 5/325) 1 tab Q6H PRN ORAL For Pain 01/07/18 01:30 01/14/18 01:29 Furosemide (Lasix) 20 mg DAILY ORAL 01/07/18 09:00 02/06/18 08:59 01/08/18 08:57 Metoprolol Tartrate (Lopressor) 5 mg Q4H PRN IVP Per rx protocol 01/07/18 01:15 02/06/18 01:14 Metoprolol Tartrate (Lopressor) 50 mg Q12HR ORAL 01/07/18 09:00 02/06/18 08:59 01/08/18 08:57 Ondansetron HCl (Zofran) 4 mg Q4H PRN IVP Nausea & Vomiting 01/07/18 01:15 02/06/18 01:14 Pantoprazole (Protonix) 40 mg DAILY ORAL 01/07/18 09:00 02/06/18 08:59 01/08/18 08:57 Potassium Chloride (K-Dur) 20 meq DAILY ORAL 01/07/18 09:00 02/06/18 08:59 01/08/18 08:57 Rivaroxaban (Xarelto) 15 mg DAILY@1630 ORAL 01/07/18 02:00 02/06/18 01:59 01/07/18 16:26 Valacyclovir HCl (Valtrex) 500 mg EVERY OTHER DAY ORAL 01/07/18 09:00 02/06/18 08:59 01/07/18 08:20 Zolpidem Tartrate (Ambien) 5 mg HSPRN PRN ORAL Insomnia 01/07/18 01:15 01/14/18 01:14 Gonzales Bright MD Jan 08, 2018 12:49
--- NOTE | 2018-01-08 13:10 | General Progress Note ---
Assessment/Plan Problem List: (1) Major depression ICD Codes: F32.9 - Major depressive disorder, single episode, unspecified SNOMED: 793097625 (2) Anxiety ICD Codes: F41.9 - Anxiety disorder, unspecified SNOMED: 13848436 Status: stable, progressing Assessment/Plan ativan prn provided ro/st Subjective Date patient seen: Jan 08, 2018 Neurologic/Psychiatric: Reports: anxiety, depressed, emotional problems Allergies: Coded Allergies: SULFA (SULFONAMIDE ANTIBIOTICS) (Verified Allergy, Unknown, 01/07/18) Objective Last 24 Hour Vital Signs Date Time Temp Pulse Resp B/P (MAP) Pulse Ox O2 Delivery O2 Flow Rate FiO2 01/08/18 11:16 98.0 93 18 123/85 (98) 99 01/08/18 09:00 Room Air 01/08/18 08:57 100 135/80 01/08/18 08:00 94 01/08/18 08:00 98.1 100 18 135/80 (98) 99 01/08/18 04:00 98.2 80 21 123/72 (89) 99 01/08/18 04:00 74 01/08/18 00:00 98.2 108 20 118/72 (87) 96 01/08/18 00:00 94 01/07/18 21:00 Room Air 01/07/18 20:24 98 127/65 01/07/18 20:00 113 01/07/18 19:50 98.1 98 20 127/65 (85) 98 01/07/18 16:00 97.5 97 20 139/89 (106) 96 01/07/18 16:00 112 Intake and Output 01/07/18 01/08/18 18:59 06:59 Intake Total 1200 ml Output Total 300 ml Balance 900 ml Intake Oral 1200 ml Output Urine Total 300 ml # Voids 3 5 # Bowel Movements 2 Laboratory Tests 01/08/18 07:35: White Blood Count 5.6, Red Blood Count 4.59, Hemoglobin 14.8, Hematocrit 42.7, Mean Corpuscular Volume 93, Mean Corpuscular Hemoglobin 32.3H, Mean Corpuscular Hemoglobin Concent 34.7, Red Cell Distribution Width 12.2, Platelet Count 226, Mean Platelet Volume 6.4L, Neutrophils (%) (Auto) 61.2, Lymphocytes (%) (Auto) 27.5, Monocytes (%) (Auto) 9.3, Eosinophils (%) (Auto) 1.1, Basophils (%) (Auto ) 0.9, Sodium Level 139, Potassium Level 4.1, Chloride Level 103, Carbon Dioxide Level 26, Anion Gap 10, Blood Urea Nitrogen 25H, Creatinine 1.3, Estimat Glomerular Filtration Rate , Glucose Level 188H, Calcium Level 8.5, Troponin I 0.001, Pro-B-Type Natriuretic Peptide 3562H, Thyroid Stimulating Hormone (TSH) 0.063L, Free Thyroxine 1.40 Height (Feet): 5 Height (Inches): 5.50 Weight (Pounds): 133 General Appearance: no apparent distress, alert Neurologic: oriented x 3, responsive, depressed affect Seth Beck MD Jan 08, 2018 13:10
--- NOTE | 2018-01-08 15:08 | Internal Med Progress Note ---
Subjective Physician Name Ruel Lama Attending Physician Ruel Lama MD Current Medications Medications (Trade) Dose Ordered Sig/Nazario Route PRN Reason Start Time Stop Time Status Last Admin Dose Admin Acetaminophen (Tylenol) 650 mg Q6H PRN ORAL Mild Pain/Temp > 100.5 01/07/18 01:15 02/06/18 01:14 Acetaminophen/ Hydrocodone Bitart ([place] 5/325) 1 tab Q6H PRN ORAL For Pain 01/07/18 01:30 01/14/18 01:29 Furosemide (Lasix) 20 mg DAILY ORAL 01/07/18 09:00 02/06/18 08:59 01/08/18 08:57 Metoprolol Tartrate (Lopressor) 5 mg Q4H PRN IVP Per rx protocol 01/07/18 01:15 02/06/18 01:14 Metoprolol Tartrate (Lopressor) 50 mg Q12HR ORAL 01/07/18 09:00 02/06/18 08:59 01/08/18 08:57 Ondansetron HCl (Zofran) 4 mg Q4H PRN IVP Nausea & Vomiting 01/07/18 01:15 02/06/18 01:14 Pantoprazole (Protonix) 40 mg DAILY ORAL 01/07/18 09:00 02/06/18 08:59 01/08/18 08:57 Potassium Chloride (K-Dur) 20 meq DAILY ORAL 01/07/18 09:00 02/06/18 08:59 01/08/18 08:57 Rivaroxaban (Xarelto) 15 mg DAILY@1630 ORAL 01/07/18 02:00 02/06/18 01:59 01/07/18 16:26 Valacyclovir HCl (Valtrex) 500 mg EVERY OTHER DAY ORAL 01/07/18 09:00 02/06/18 08:59 01/07/18 08:20 Zolpidem Tartrate (Ambien) 5 mg HSPRN PRN ORAL Insomnia 01/07/18 01:15 01/14/18 01:14 Allergies: Coded Allergies: SULFA (SULFONAMIDE ANTIBIOTICS) (Verified Allergy, Unknown, 01/07/18) Subjective awake, alert, responsive, NO CP or SOB Objective Last Vital Signs Date Time Temp Pulse Resp B/P (MAP) Pulse Ox O2 Delivery O2 Flow Rate FiO2 01/08/18 12:00 87 01/08/18 11:16 98.0 18 123/85 (98) 99 01/08/18 09:00 Room Air Laboratory Tests Test 01/08/18 07:35 White Blood Count 5.6 K/UL (4.8-10.8) Red Blood Count 4.59 M/UL (4.20-5.40) Hemoglobin 14.8 G/DL (12.0-16.0) Hematocrit 42.7 % (37.0-47.0) Mean Corpuscular Volume 93 FL (80-99) Mean Corpuscular Hemoglobin 32.3 PG (27.0-31.0) H Mean Corpuscular Hemoglobin Concent 34.7 G/DL (32.0-36.0) Red Cell Distribution Width 12.2 % (11.6-14.8) Platelet Count 226 K/UL (150-450) Mean Platelet Volume 6.4 FL (6.5-10.1) L Neutrophils (%) (Auto) 61.2 % (45.0-75.0) Lymphocytes (%) (Auto) 27.5 % (20.0-45.0) Monocytes (%) (Auto) 9.3 % (1.0-10.0) Eosinophils (%) (Auto) 1.1 % (0.0-3.0) Basophils (%) (Auto) 0.9 % (0.0-2.0) Sodium Level 139 MMOL/L (136-145) Potassium Level 4.1 MMOL/L (3.5-5.1) Chloride Level 103 MMOL/L (98-107) Carbon Dioxide Level 26 MMOL/L (21-32) Anion Gap 10 mmol/L (5-15) Blood Urea Nitrogen 25 mg/dL (7-18) H Creatinine 1.3 MG/DL (0.55-1.30) Estimat Glomerular Filtration Rate mL/min (>60) Glucose Level 188 MG/DL (74-106) H Calcium Level 8.5 MG/DL (8.5-10.1) Troponin I 0.001 ng/mL (0.000-0.056) Pro-B-Type Natriuretic Peptide 3562 pg/mL (0-125) H Thyroid Stimulating Hormone (TSH) 0.063 uiU/mL (0.358-3.740) Free Thyroxine 1.40 NG/DL (0.76-1.46) Intake and Output 01/07/18 01/08/18 19:00 07:00 Intake Total 1200 ml Output Total 300 ml Balance 900 ml Intake Oral 1200 ml Output Urine Total 300 ml # Voids 3 5 # Bowel Movements 2 Objective General: No acute distress, awake and alert HEENT: NCAT, sclera anicteric, PERRL, EOMI. Neck: Supple, no significant jugular venous distention, Lungs: Good inspiratory effort, clear to auscultation bilaterally, no Wheeze or Rales. Heart: Irregular rate and rhythm, normal S1/S2, no murmurs. Abdomen: soft, nontender, nondistended. Normoactive bowel sounds. / Rectal: Refused and deferred. Extremities: No Cyanosis , clubbing or edema. Neuro: A&O x 3, Able to move all extremities Skin: warm, no rashes or lesions Psych: Normal mood and affect Assessment/Plan Assessment/Plan 1. Syncopal episode. 2. Atrial fibrillation with rapid ventricular rate. 3. Hypercholesterolemia. 4. Hypothyroidism. 5. Sourav-Cummings virus. Plan: F/u with Dr. Morales recommendations Monitor labs 2D Echo PT Mobility Ruel Lama MD Jan 08, 2018 15:08
[2018-01-08 15:48] VITALS: BP 139/91
[2018-01-08] MEDS: Xarelto 15mg tab ORAL SCH (15:55)
[2018-01-08 20:11] VITALS: BP 108/65
--- NOTE | 2018-01-08 20:29 | Consultation ---
Consult Note Consult Note ID # [id number] Jean Paul Staton MD Jan 08, 2018 20:29
[2018-01-09 00:01] VITALS: BP 102/70
--- NOTE | 2018-01-09 01:15 | Consultation ---
DATE OF CONSULTATION: 01/08/2018 INFECTIOUS DISEASE CONSULTATION REFERRING PHYSICIAN: João Aguilar M.D. REASON FOR CONSULTATION: Evaluation of the patient for ? Sourav-Cummings virus, on acyclovir. HISTORY OF PRESENT ILLNESS: The patient is an 82-year-old female, who came to the hospital after the patient had passed out at a grocery store. After the patient became dizzy, 911 was called, initially was admitted to [facility]. The patient was found to have atrial fibrillation with rapid ventricular response. Later, the patient was transferred here for further care due to the insurance purposes. The patient is taking acyclovir. Initially, she mentioned that due to Sourav-Cummings virus, after my clarification asking that if she has genital herpes, she complained that on Valtrex for over a year. Currently, she does not have any lesions. PAST MEDICAL HISTORY: 1. Hypercholesterolemia. 2. Hypothyroidism. 3. Chronic genital herpes zoster. PAST SURGICAL HISTORY: 1. Thyroidectomy. 2. Left breast mastectomy. 3. Right hip replacement. SOCIAL HISTORY: The patient lives alone. No history of alcohol or drug abuse. REVIEW OF SYSTEMS: A 10-point was done except for what was mentioned has been negative. MEDICATION: Valtrex 500 mg every other day. ALLERGIES: Sulfa. PHYSICAL EXAMINATION: VITAL SIGNS: Temperature 97.3, pulse 86, respiratory rate 18, and blood pressure 110/74. HEENT: No pale conjunctivae. No scleral icterus. NECK: Supple. CHEST: Clear. HEART: S1 and S2. ABDOMEN: Soft and nontender. EXTREMITIES: No cyanosis at this time. NEUROLOGIC: Awake. LABORATORY DATA: White blood cells 5.6, hemoglobin 14, and platelets 226,000. BUN 25 and creatinine 1.3. ALT, AST, and alkaline phosphatase were unremarkable. Chest x-ray, biapical calcification. ASSESSMENT: The patient is an 82-year-old female with: 1. Chronic herpes genitalis. 2. Atrial fibrillation with rapid ventricular response. 3. Afebrile. 4. Normal white blood cells. PLAN: 1. The patient is on Valtrex. 2. We will follow Cardiology recommendations. 3. Monitor CBC and labs. 4. Based on the patient's labs, we will do further recommendation. Thank you, Dr. Aguilar, for allowing me to participate in the care of this patient. I will follow the patient with you during this hospitalization. Jean Paul Staton M.D. DR: DANISH JOB#: [id number] CC:
[2018-01-09 04:00] VITALS: BP 130/87
--- NOTE | 2018-01-09 07:27 | Pulmonology Progress Note ---
Assessment/Plan Assessment/Plan ASSESSMENT Atrial fibrillation ,new onset Hyperthyroidism with history of hypothyroidism complete left BBB presyncope mild pulmonary hypertension moderate aortic regurgitation recurrent genital herpes history of EBV history of breast cancer PLAN OF CARE telemetry O2 HHN prn HR control with BB and anticoagulation with Xarelto GI prophylaxis ECHO with pEF and RVSP of 37 ,c/w mild pulmonary hypertension Synthroid dc; patient with mild hyperthyroidism cont tele cardio follows watch for intermittent complete heart block , given history of complete left bundle branch block and presyncope carotid duplex pending Zio patch as outpatient- per cardio fup with cardio as outpt patient will need to check TFT in 1 months with PMD case discussed and evaluated by supervising physician Subjective Allergies: Coded Allergies: SULFA (SULFONAMIDE ANTIBIOTICS) (Verified Allergy, Unknown, 01/07/18) Subjective denies chest pain, SOB A fib on monitor with controlled rate Objective Last 24 Hour Vital Signs Date Time Temp Pulse Resp B/P (MAP) Pulse Ox O2 Delivery O2 Flow Rate FiO2 01/09/18 04:00 98.1 87 20 130/87 (101) 98 01/09/18 04:00 72 01/09/18 00:01 98.2 84 20 102/70 (81) 98 01/09/18 00:00 84 01/08/18 21:44 88 110/74 01/08/18 21:05 Room Air 01/08/18 20:11 98.3 95 20 108/65 (79) 95 01/08/18 20:10 95 01/08/18 16:00 95 01/08/18 15:48 97.6 104 18 139/91 (107) 100 01/08/18 12:00 87 01/08/18 11:16 98.0 93 18 123/85 (98) 99 01/08/18 09:00 Room Air 01/08/18 08:57 100 135/80 01/08/18 08:00 94 01/08/18 08:00 98.1 100 18 135/80 (98) 99 Intake and Output 01/08/18 01/09/18 19:00 07:00 Intake Total 360 ml 100 ml Output Total 850 ml Balance -490 ml 100 ml Intake Oral 360 ml 100 ml Output Urine Total 850 ml # Voids 1 1 # Bowel Movements 1 General Appearance: no acute distress HEENT: normocephalic, atraumatic, anicteric Respiratory/Chest: lungs clear, no respiratory distress Cardiovascular: no JVD, irregularly irregular - A fib on tele, rate controlled Abdomen: normal bowel sounds, soft, non tender Extremities: no edema Neurologic/Psychiatric: alert, responsive Musculoskeletal: atrophy - BLE Laboratory Tests 01/08/18 07:35: White Blood Count 5.6, Red Blood Count 4.59, Hemoglobin 14.8, Hematocrit 42.7, Mean Corpuscular Volume 93, Mean Corpuscular Hemoglobin 32.3H, Mean Corpuscular Hemoglobin Concent 34.7, Red Cell Distribution Width 12.2, Platelet Count 226, Mean Platelet Volume 6.4L, Neutrophils (%) (Auto) 61.2, Lymphocytes (%) (Auto) 27.5, Monocytes (%) (Auto) 9.3, Eosinophils (%) (Auto) 1.1, Basophils (%) (Auto ) 0.9, Sodium Level 139, Potassium Level 4.1, Chloride Level 103, Carbon Dioxide Level 26, Anion Gap 10, Blood Urea Nitrogen 25H, Creatinine 1.3, Estimat Glomerular Filtration Rate , Glucose Level 188H, Calcium Level 8.5, Troponin I 0.001, Pro-B-Type Natriuretic Peptide 3562H, Thyroid Stimulating Hormone (TSH) 0.063L, Free Thyroxine 1.40 Current Medications Medications (Trade) Dose Ordered Sig/Nazario Route PRN Reason Start Time Stop Time Status Last Admin Dose Admin Acetaminophen (Tylenol) 650 mg Q6H PRN ORAL Mild Pain/Temp > 100.5 01/07/18 01:15 02/06/18 01:14 Acetaminophen/ Hydrocodone Bitart ([place] 5/325) 1 tab Q6H PRN ORAL For Pain 01/07/18 01:30 01/14/18 01:29 Furosemide (Lasix) 20 mg DAILY ORAL 01/07/18 09:00 02/06/18 08:59 01/08/18 08:57 Metoprolol Tartrate (Lopressor) 5 mg Q4H PRN IVP Per rx protocol 01/07/18 01:15 02/06/18 01:14 Metoprolol Tartrate (Lopressor) 50 mg Q12HR ORAL 01/07/18 09:00 02/06/18 08:59 01/08/18 21:44 Ondansetron HCl (Zofran) 4 mg Q4H PRN IVP Nausea & Vomiting 01/07/18 01:15 02/06/18 01:14 Pantoprazole (Protonix) 40 mg DAILY ORAL 01/07/18 09:00 02/06/18 08:59 01/08/18 08:57 Potassium Chloride (K-Dur) 20 meq DAILY ORAL 01/07/18 09:00 02/06/18 08:59 01/08/18 08:57 Rivaroxaban (Xarelto) 15 mg DAILY@1630 ORAL 01/07/18 02:00 02/06/18 01:59 01/08/18 15:55 Valacyclovir HCl (Valtrex) 500 mg EVERY OTHER DAY ORAL 01/07/18 09:00 02/06/18 08:59 01/07/18 08:20 Zolpidem Tartrate (Ambien) 5 mg HSPRN PRN ORAL Insomnia 01/07/18 01:15 01/14/18 01:14 Dina Vaca NP Jan 09, 2018 07:27
[2018-01-09 08:00] VITALS: BP 112/70
[2018-01-09] MEDS: valACYclovir HCL 500mg tab ORAL SCH (08:40)
[2018-01-09] MEDS: Metoprolol Tartrate 50mg tab ORAL SCH (08:40)
[2018-01-09] MEDS ORDERED: METOPROLOL TART50 MG ORAL (09:45)
[2018-01-09] MEDS ORDERED: XARELTO15 MG ORAL (09:45)
--- NOTE | 2018-01-09 10:31 | Infectious Diseases Prog Note ---
Assessment/Plan Assessment/Plan ASSESSMENT: The patient is an 82-year-old female with: Afebrile. Normal white blood cells. Recurrent genital herpes zoster. Atrial fibrillation with rapid ventricular HLD Hypothyroidism. Thyroidectomy. Left breast mastectomy. Right hip replacement. PLAN: cont pt on [facility] fup Monitor CBC and BMP Subjective Constitutional: Denies: no symptoms, fever, chills, fatigue, anorexia, drenching sweats, other Allergies: Coded Allergies: SULFA (SULFONAMIDE ANTIBIOTICS) (Verified Allergy, Unknown, 01/07/18) Objective Vital Signs Last 24 Hour Vital Signs Date Time Temp Pulse Resp B/P (MAP) Pulse Ox O2 Delivery O2 Flow Rate FiO2 01/09/18 08:40 91 112/70 01/09/18 08:00 97.6 91 20 112/70 (84) 100 01/09/18 04:00 98.1 87 20 130/87 (101) 98 01/09/18 04:00 72 01/09/18 00:01 98.2 84 20 102/70 (81) 98 01/09/18 00:00 84 01/08/18 21:44 88 110/74 01/08/18 21:05 Room Air 01/08/18 20:11 98.3 95 20 108/65 (79) 95 01/08/18 20:10 95 01/08/18 16:00 95 01/08/18 15:48 97.6 104 18 139/91 (107) 100 01/08/18 12:00 87 01/08/18 11:16 98.0 93 18 123/85 (98) 99 Height (Feet): 5 Height (Inches): 5.50 Weight (Pounds): 133 HEENT: anicteric Respiratory/Chest: normal breath sounds Cardiovascular: normal rate Abdomen: non distended Current Medications Medications (Trade) Dose Ordered Sig/Nazario Route PRN Reason Start Time Stop Time Status Last Admin Dose Admin Acetaminophen (Tylenol) 650 mg Q6H PRN ORAL Mild Pain/Temp > 100.5 01/07/18 01:15 02/06/18 01:14 Acetaminophen/ Hydrocodone Bitart ([place] 5/325) 1 tab Q6H PRN ORAL For Pain 01/07/18 01:30 01/14/18 01:29 Furosemide (Lasix) 20 mg DAILY ORAL 01/07/18 09:00 02/06/18 08:59 01/09/18 08:39 Metoprolol Tartrate (Lopressor) 5 mg Q4H PRN IVP Per rx protocol 01/07/18 01:15 02/06/18 01:14 Metoprolol Tartrate (Lopressor) 50 mg Q12HR ORAL 01/07/18 09:00 02/06/18 08:59 01/09/18 08:40 Ondansetron HCl (Zofran) 4 mg Q4H PRN IVP Nausea & Vomiting 01/07/18 01:15 02/06/18 01:14 Pantoprazole (Protonix) 40 mg DAILY ORAL 01/07/18 09:00 02/06/18 08:59 01/09/18 08:39 Potassium Chloride (K-Dur) 20 meq DAILY ORAL 01/07/18 09:00 02/06/18 08:59 01/09/18 08:39 Rivaroxaban (Xarelto) 15 mg DAILY@1630 ORAL 01/07/18 02:00 02/06/18 01:59 01/08/18 15:55 Valacyclovir HCl (Valtrex) 500 mg EVERY OTHER DAY ORAL 01/07/18 09:00 02/06/18 08:59 01/09/18 08:40 Zolpidem Tartrate (Ambien) 5 mg HSPRN PRN ORAL Insomnia 01/07/18 01:15 01/14/18 01:14 Jean Paul Staton MD Jan 09, 2018 10:30
--- NOTE | 2018-01-09 11:45 | Cardiac Electrophysiology PN ---
Assessment/Plan Assessment/Plan 1. Atrial fibrillation. The patient is mildly hyperthyroid. T4 and T3 is elevated and TSH is low. Hold Synthroid . Continue metoprolol 50 mg b.i.d. and Xarelto 15 daily 2. Complete left bundle-branch block and presyncope. Watch the patient for intermittent complete heart block. EF 55%. Carotid duplex pending. Zio patch as out patient 3. HTN. DC Lasix. Continue Metoprolol 4. History of hypothyroidism, currently hyperthyroid. Discontinue Synthroid for now. Subjective Subjective Still in Atrial fib rate 70s. No CP or SOB Objective Last 24 Hour Vital Signs Date Time Temp Pulse Resp B/P (MAP) Pulse Ox O2 Delivery O2 Flow Rate FiO2 01/09/18 09:00 Room Air 01/09/18 08:40 91 112/70 01/09/18 08:00 97.6 91 20 112/70 (84) 100 01/09/18 08:00 101 01/09/18 04:00 98.1 87 20 130/87 (101) 98 01/09/18 04:00 72 01/09/18 00:01 98.2 84 20 102/70 (81) 98 01/09/18 00:00 84 01/08/18 21:44 88 110/74 01/08/18 21:05 Room Air 01/08/18 20:11 98.3 95 20 108/65 (79) 95 01/08/18 20:10 95 01/08/18 16:00 95 01/08/18 15:48 97.6 104 18 139/91 (107) 100 01/08/18 12:00 87 Intake and Output 01/08/18 01/09/18 18:59 06:59 Intake Total 360 ml 100 ml Output Total 850 ml Balance -490 ml 100 ml Intake Oral 360 ml 100 ml Output Urine Total 850 ml # Voids 1 1 # Bowel Movements 1 Objective HEENT: Head and neck shows no JVD. LUNGS: Clear. CARDIOVASCULAR: Irregular S1 and S2 with no gallop or murmur. ABDOMEN: Soft. EXTREMITIES: No pitting edema. Berry Morales MD Jan 09, 2018 11:45
[2018-01-09 12:00] VITALS: BP 100/66
--- NOTE | 2018-01-09 15:22 | Internal Med Progress Note ---
Subjective Date of Service: Jan 09, 2018 Physician Name João Aguilar Attending Physician Ruel Lama MD Current Medications Medications (Trade) Dose Ordered Sig/Nazario Route PRN Reason Start Time Stop Time Status Last Admin Dose Admin Acetaminophen (Tylenol) 650 mg Q6H PRN ORAL Mild Pain/Temp > 100.5 01/07/18 01:15 02/06/18 01:14 Acetaminophen/ Hydrocodone Bitart ([place] 5/325) 1 tab Q6H PRN ORAL For Pain 01/07/18 01:30 01/14/18 01:29 Metoprolol Tartrate (Lopressor) 5 mg Q4H PRN IVP Per rx protocol 01/07/18 01:15 02/06/18 01:14 Metoprolol Tartrate (Lopressor) 50 mg Q12HR ORAL 01/07/18 09:00 02/06/18 08:59 01/09/18 08:40 Ondansetron HCl (Zofran) 4 mg Q4H PRN IVP Nausea & Vomiting 01/07/18 01:15 02/06/18 01:14 Pantoprazole (Protonix) 40 mg DAILY ORAL 01/07/18 09:00 02/06/18 08:59 01/09/18 08:39 Potassium Chloride (K-Dur) 20 meq DAILY ORAL 01/07/18 09:00 02/06/18 08:59 01/09/18 08:39 Rivaroxaban (Xarelto) 15 mg DAILY@1630 ORAL 01/07/18 02:00 02/06/18 01:59 01/08/18 15:55 Valacyclovir HCl (Valtrex) 500 mg EVERY OTHER DAY ORAL 01/07/18 09:00 02/06/18 08:59 01/09/18 08:40 Zolpidem Tartrate (Ambien) 5 mg HSPRN PRN ORAL Insomnia 01/07/18 01:15 01/14/18 01:14 Allergies: Coded Allergies: SULFA (SULFONAMIDE ANTIBIOTICS) (Verified Allergy, Unknown, 01/07/18) ROS Limited/Unobtainable: No Constitutional: Reports: no symptoms HEENT: Reports: no symptoms Cardiovascular: Reports: irregular heart rate Respiratory: Reports: no symptoms Gastrointestinal/Abdominal: Reports: no symptoms Neurologic/Psychiatric: Reports: no symptoms Subjective 82 YO F admitted with near syncope. Now atrial fibrillation with rapid ventricular rate and complete Left bundle branch block. Cover for Int Med-Dr Lama. Objective Last Vital Signs Date Time Temp Pulse Resp B/P (MAP) Pulse Ox O2 Delivery O2 Flow Rate FiO2 01/09/18 12:00 98.0 79 20 100/66 (77) 98 01/09/18 09:00 Room Air Intake and Output 01/08/18 01/09/18 18:59 06:59 Intake Total 360 ml 100 ml Output Total 850 ml Balance -490 ml 100 ml Intake Oral 360 ml 100 ml Output Urine Total 850 ml # Voids 1 1 # Bowel Movements 1 Objective PHYSICAL EXAMINATION: GENERAL: The patient is a well-developed, well-nourished white female, in no apparent distress. HEENT: Eyes, pupils equal and responsive to light and accommodation. Extraocular movements are intact. NECK: Supple without lymphadenopathy. CHEST: Lungs are clear to auscultation bilaterally without wheezes or rales. CARDIOVASCULAR: Irregular rhythm, irregular rate, tachycardia. S1, S2 are normal without murmurs, rubs, or gallops. ABDOMEN: Soft, nontender, nondistended. Positive bowel sounds. No evidence of hepatosplenomegaly. Currently, no rebound or guarding noted. EXTREMITIES: Negative for clubbing, cyanosis, or edema. RECTAL: Refused. GENITAL: Refused. NEUROLOGIC: Cranial nerves II through XII are grossly intact without focal deficits. Motor strength is 5/5 bilaterally intact. Deep tendon reflexes are 2+, plantar. Assessment/Plan Problem List: (1) Atrial fibrillation with rapid ventricular response Assessment & Plan: controlled; continue metoprolol per cardiology (2) Hypercholesterolemia (3) Complete left bundle branch block (LBBB) (4) Near syncope (5) New onset a-fib (6) Hypothyroidism Assessment & Plan: elevated t3 and t4; hold levoxyl for now. Status: stable João Aguilar MD Jan 09, 2018 15:22
[2018-01-09 16:00] VITALS: BP 121/77
[2018-01-09] MEDS: Xarelto 15mg tab ORAL SCH (16:42)
--- NOTE | 2018-01-11 08:24 | Discharge Summary ---
Discharge Summary Discharge Summary _ DATE OF ADMISSION: 01/06/2018 DATE OF DISCHARGE: 01/09/2018 REASON FOR ADMISSION: 82 years old female with past medical history of hypertension, hypothyroidism, left breast mastectomy, recurrent genital herpes zoster, history of Sourav- Cummings virus, was initially presented to [facility] . Patient [facility] [employer] [facility] and nearly passed out. Ambulance was called, and patient presented to [facility] . Upon evaluation patient was found to be in atrial fibrillation with rapid ventricular response. After stabilization, patient patient was transferred to [facility] for insurance purposes for further management with diagnosis of new onset of atrial fibrillation. CONSULTANTS: [facility] Dr. Morales pulmonary Dr. Bright ID specialist Dr. [place] psychiatrist Dr. Beck [facility]SE: Patient admitted to telemetry floor. Heart rate was controlled with beta batool and remained stable. Anticoagulation started with Xarelto. GI prophylaxis provided. Supplemental oxygen provided as needed to keep pulse oximetry above 92%. Pulmonary toilet was on standby as needed. Pulse oximetry was stable on room air. Chest x-ray revealed no definite infiltrates or pulmonary vascular congestion. Biapical pleural calcification, likely postinflammatory,noted. Echocardiogram revealed preserved ejection fraction 55%, mild left ventricular hypertrophy, no wall motion abnormality. Right ventricular systolic pressure of 37 consistent with mild pulmonary hypertension. Moderate aortic regurgitation. Patient with history of hypothyroidism and was on Synthroid prior to admission. TSH was low - 0.044 with elevated T4 and T3. Synthroid was hold for now. Repeat thyroid function test as outpatient. Given history of complete left bundle branch block and presyncope, patient was on telemetry. Patient was closely observed for intermittent complete heart block , no heart block. Carotid duplex completed. Patient to follow-up with [facility] as outpatient for Zio patch. Infectious disease specialist followed. Patient with recurrent genital herpes zoster. Valtrex was continued. No evidence of acute infection. Psychiatrist seen and evaluated patient, diagnosed patient with depression and anxiety. Reality orientation and supportive therapy provided. Patient stabilized and was ready for discharge . FINAL DIAGNOSES: Atrial fibrillation, new onset Complete left bundle branch block Presyncope Mild hyperthyroidism with history of hypothyroidism Hypertension Mild pulmonary hypertension Moderate aortic regurgitation Recurrent genital herpes zoster History of EBV History of breast cancer, status post left breast mastectomy Major depression Anxiety DISCHARGE MEDICATIONS: See Medication Reconciliation list. DISCHARGE INSTRUCTIONS: Patient was discharged home . Follow up with primary care provider in one week Follow up with [facility] for Zio patch in one week. . Dina Vaca NP Jan 11, 2018 08:24
--- NOTE | 2018-01-11 12:18 | Diagnostic Imaging Report ---
APPROVED REPORT CPT Code: 88622 Doppler Spectral Velocity Analysis RightLeft RIGHT SIDE: CCA/ECA - Imaging reveals no significant plaque in the common carotid and external carotid arteries. ICA - Imaging reveals irregular plaque in the bulb/internal carotid artery. The Doppler signal indicates the degree of stenosis is minimal (10%) in the internal carotid artery. VERTEBRAL- The vertebral artery is patent, without evidence of stenosis or steal. LEFT SIDE: CCA/ECA - Imaging reveals no significant plaque in the common carotid and external carotid arteries. ICA - Imaging reveals irregular plaque in the bulb/ internal carotid artery. The Doppler signal indicates the degree of stenosis is minimal (50%-60%) in the internal carotid artery. VERTEBRAL- The vertebral artery was dilated.
== END 2018-01-09 18:10 | disposition home health service (06) | DRG 310 ==
LOC: 2E 22:40
DX: I48.91 Unspecified atrial fibrillation (principal); E78.00 Pure hypercholesterolemia, unspecified; E05.90 Thyrotoxicosis, unspecified without thyrotoxic crisis or storm; Z96.641 Presence of right artificial hip joint; B27.00 Gammaherpesviral mononucleosis without complication; A60.00 Herpesviral infection of urogenital system, unspecified; F32.9 Major depressive disorder, single episode, unspecified; F41.9 Anxiety disorder, unspecified; I44.7 Left bundle-branch block, unspecified; I10 Essential (primary) hypertension; I27.20 Pulmonary hypertension, unspecified; I35.1 Nonrheumatic aortic (valve) insufficiency; Z85.3 Personal history of malignant neoplasm of breast
CPT/HCPCS: 36415; 71045; 80048; 80053; 80061; 83735; 83880; 84100; 84439; 84443; 84481; 84484; 85025; 93005; 93306; 93882; J8499